=== PATIENT | male | born 1935 | race Hispanic/Latino ===

== ENCOUNTER → 2018-06-30 | Outpatient (CLI) | payer OTHER ==
[~2018-06-30] VITALS: Ht 167.6 cm; Wt 70.3 kg
[~2018-06-30] MED LIST: ASPI-1197 PO; GLIP1TAB6 PO; LISI40TA4 PO; PRAV20TA4 PO; REGADENOSON 0.4 MG/5 ML PF SYG IVP SCH; SITA100T12 PO
== END | disposition home or self-care (01) ==
LOC: SHCH 08:38
PROVIDERS: ATTEND Internal Medicine Cardiovascular Disease
DX: I25.9 Chronic ischemic heart disease, unspecified (principal); I10 Essential (primary) hypertension
CPT/HCPCS: 78452; 93017; 96374; A9500 ×2; J2785

== ENCOUNTER 2020-10-02 14:46 | Observation (INO) | payer OTHER ==
[~2020-10-02] VITALS: Ht 167.6 cm; Wt 66.2 kg
[~2020-10-02 14:46] MED LIST changes: -ASPI-1197 PO; +ASPI-556 PO; +HYDR-3421 PO; -LISI40TA4 PO; +LISI40TA9 PO; +NITR0.4T50 SL; -REGADENOSON 0.4 MG/5 ML PF SYG IVP SCH; +TAMS-1 PO
[2020-10-02 14:49] VITALS: BP 164/97
[2020-10-02 15:38] LABS: BASOPHILS % (AUTO) 0.8 % (0.0-5.0); EOSINOPHILS % (AUTO) 2.8 % (0.0-8.0); HEMATOCRIT 32.3 % (42-54); LYMPHOCYTES % (AUTO) 24.1 % (21.0-51.0); MEAN CORPUSCULAR HEMOGLOBIN 24.3 pg (27.0-33.0); MEAN CORPUSCULAR HGB CONC 31.6 g/dL (32.0-36.0); MEAN CORPUSCULAR VOLUME 76.9 fL (79-99); NEUTROPHILS % (AUTO) 61.7 % (40.0-77.0); PLATELET COUNT (AUTO) 293 K/uL (130-400); RED CELL DISTRIBUTION WIDTH 15.1 % (11.0-15.5); WHITE BLOOD COUNT (AUTO) 5.3 K/uL (4.8-10.8)
[2020-10-02 15:48] LABS: INR 1.06 (0.85-1.15); PROTHROMBIN TIME 11.5 SEC (9.6-11.6)
[2020-10-02 15:49] LABS: PARTIAL THROMBOPLASTIN TIME 25.9 SEC (26.3-35.5)
[2020-10-02 15:50] LABS: CARBON DIOXIDE 26 mmol/L (21-32); CHLORIDE 101 mmol/L (101-111); GLOMERULAR FILTR. RATE CALC 75 mL/min (>60); GLUCOSE,RANDOM 259 mg/dL (70-105); POTASSIUM 4.4 mmol/L (3.5-5.1); SODIUM SERUM 137 mmol/L (136-145); UREA NITROGEN, BLOOD 24 mg/dL (7-18)
[2020-10-02 16:00] VITALS: BP 150/76
[2020-10-02 16:02] LABS: ALANINE AMINOTRANSFERASE 20 U/L (12-78); ALBUMIN 3.6 g/dL (3.5-5.0); ASPARTATE AMINOTRANSFERASE 6 U/L (10-37); BILIRUBIN,TOTAL 0.4 mg/dL (0.2-1.0); CREATINE KINASE, TOTAL 53 U/L (21-232); MYOGLOBIN 36 ng/mL (10-92); TOTAL PROTEIN, SERUM 7.2 g/dL (6.0-8.3); TROPONIN I < 0.04 ng/mL (0.00-0.06)
[2020-10-02 16:05] LABS: B-TYPE NATRIURETIC PEPTIDE 31 pg/mL (0-100)
[2020-10-02] MEDS ORDERED: SITA100T12 PO (16:16)
[2020-10-02] MEDS ORDERED: METO25TA6 PO (16:16)
[2020-10-02] MEDS ORDERED: GLUCAGON 1MG KIT 1 MG ML IM PRN (17:00)
[2020-10-02] MEDS ORDERED: ACETAMINOPHEN 325 MG TAB PO PRN (17:00)
[2020-10-02] MEDS ORDERED: ONDANSETRON 4MG TABLET PO PRN (17:00)
[2020-10-02] MEDS ORDERED: DEXTROSE 50%-WATER 50 ML DISP.SYRIN IV PRN (17:00)
[2020-10-02] MEDS ORDERED: TETANUS/DIPHTHERIA TOXOID [ADULT] 0.5 ML VIAL IM ONE ×2 (17:30→20:00)
[2020-10-02] MEDS: INSULIN R PO SS1 SQ SCH (21:00)
[2020-10-02 22:16] LABS: CREATINE KINASE, TOTAL 58 U/L (21-232); MYOGLOBIN 39 ng/mL (10-92); TROPONIN I < 0.04 ng/mL (0.00-0.06)
[2020-10-02 22:18] VITALS: BP 151/64
[2020-10-03] VITALS (7 sets, daily range): BP systolic 111–153; BP diastolic 53–74
[2020-10-03 04:18] LABS: BASOPHILS % (AUTO) 0.4 % (0.0-5.0); EOSINOPHILS % (AUTO) 2.5 % (0.0-8.0); HEMATOCRIT 30.8 % (42-54); LYMPHOCYTES % (AUTO) 22.3 % (21.0-51.0); MEAN CORPUSCULAR HEMOGLOBIN 24.2 pg (27.0-33.0); MEAN CORPUSCULAR HGB CONC 31.8 g/dL (32.0-36.0); MONOCYTES % (AUTO) 9.2 % (3.0-13.0); NEUTROPHILS % (AUTO) 65.3 % (40.0-77.0); PLATELET COUNT (AUTO) 272 K/uL (130-400); RED BLOOD CELL COUNT(AUTO) 4.05 MIL/uL (4.50-6.20); WHITE BLOOD COUNT (AUTO) 6.8 K/uL (4.8-10.8)
[2020-10-03 04:42] LABS: CARBON DIOXIDE 26 mmol/L (21-32); CHLORIDE 103 mmol/L (101-111); CREATINE KINASE, TOTAL 55 U/L (21-232); CREATININE 1.1 mg/dL (0.5-1.5); GLOMERULAR FILTR. RATE CALC 67 mL/min (>60); GLUCOSE,RANDOM 186 mg/dL (70-105); MYOGLOBIN 48 ng/mL (10-92); SODIUM SERUM 140 mmol/L (136-145); TROPONIN I < 0.04 ng/mL (0.00-0.06); UREA NITROGEN, BLOOD 19 mg/dL (7-18)
[2020-10-03] MEDS: INSULIN R PO SS1 SQ SCH ×3 (06:39→16:30)
[2020-10-03] MEDS ORDERED: MAGNESIUM 2GM PREMIX 50ML 50 ML IV PRN (08:30)
[2020-10-03] MEDS ORDERED: LINAGLIPTIN 5 MG TABLET PO SCH (09:00)
[2020-10-03] MEDS ORDERED: ENOXAPARIN SODIUM 40 MG/0.4 ML SYRINGE SQ SCH (09:00)
[2020-10-03] MEDS: GLIPIZIDE 5 MG TABLET PO SCH ×2 (09:13→17:00)
[2020-10-03] MEDS: METOPROLOL TARTRATE 25 MG TAB PO SCH ×2 (12:33→17:00)
[2020-10-03] MEDS ORDERED: METFORMIN HCL 500 MG TABLET PO SCH (17:00)
[2020-10-03] MEDS ORDERED: ASPIRIN 81 MG EC TAB PO SCH (21:00)
[2020-10-03] MEDS ORDERED: SIMVASTATIN 20 MG TABLET PO SCH (21:00)
[2020-10-03] MEDS ORDERED: TAMSULOSIN HCL 0.4 MG CAP.ER.24H PO SCH (21:00)
== END 2020-10-03 17:45 | disposition home or self-care (01) ==
LOC: EDH 14:46 → EDHIP 16:20 → 3BH 22:23
PROVIDERS: ADMIT Internal Medicine Infectious Disease; ATTEND Internal Medicine Infectious Disease
DX: R55 Syncope and collapse (principal); S06.0X9A Concussion with loss of consciousness of unspecified duration, initial encounter; S01.01XA Laceration without foreign body of scalp, initial encounter; I10 Essential (primary) hypertension; I44.0 Atrioventricular block, first degree; N40.0 Benign prostatic hyperplasia without lower urinary tract symptoms; D64.9 Anemia, unspecified; E78.5 Hyperlipidemia, unspecified; E78.00 Pure hypercholesterolemia, unspecified; I25.10 Atherosclerotic heart disease of native coronary artery without angina pectoris; E11.65 Type 2 diabetes mellitus with hyperglycemia; E66.9 Obesity, unspecified; I48.0 Paroxysmal atrial fibrillation; E03.9 Hypothyroidism, unspecified; Z98.61 Coronary angioplasty status; Z79.82 Long term (current) use of aspirin; Z95.1 Presence of aortocoronary bypass graft; Z68.23 Body mass index [BMI] 23.0-23.9, adult; W19.XXXA Unspecified fall, initial encounter; Y92.89 Other specified places as the place of occurrence of the external cause; Y93.89 Activity, other specified; Y99.8 Other external cause status
CPT/HCPCS: 36415 ×2; 70450; 72125; 80048; 80053; 82550 ×3; 82948 ×4; 83735; 83874 ×3; 83880; 84484 ×3; 85025 ×2; 85610; 85730; 93005 ×3; 93306; 93356; 93880; 96365; 96366; 96372; 99285; G0378 ×24; J1650; J1815 ×2; J3475; Q0162; 90714

== ENCOUNTER → 2022-12-15 | Outpatient (CLI) | payer OTHER ==
[~2022-12-15] MED LIST changes: -HYDR-3421 PO; -LISI40TA9 PO; +METO25TA6 PO; -NITR0.4T50 SL
[2022-12-15 12:21] LABS: BASOPHILS # (AUTO) 0.04 K/uL (0.00-0.20); BASOPHILS % (AUTO) 0.6 % (0.0-5.0); EOSINOPHILS # (AUTO) 0.24 K/uL (0.00-0.70); EOSINOPHILS % (AUTO) 3.4 % (0.0-8.0); IMMATURE GRANULOCYTE ABSOLUTE 0.05 K/uL (0-1); LYMPHOCYTES # (AUTO) 1.9 K/uL (1.0-4.8); LYMPHOCYTES % (AUTO) 27.1 % (21.0-51.0); MEAN CORPUSCULAR HEMOGLOBIN 22.1 pg (27.0-33.0); MEAN CORPUSCULAR HGB CONC 29.7 g/dL (32.0-36.0); MEAN CORPUSCULAR VOLUME 74.4 fL (79-99); MONOCYTES # (AUTO) 0.5 K/uL (0.1-1.0); MONOCYTES % (AUTO) 7.5 % (3.0-13.0); NEUTROPHILS # (AUTO) 4.3 K/uL (1.8-7.7); NEUTROPHILS % (AUTO) 60.7 % (40.0-77.0); PLATELET COUNT (AUTO) 392 K/uL (130-400); RED BLOOD CELL COUNT(AUTO) 4.84 MIL/uL (4.50-6.20); RED CELL DISTRIBUTION WIDTH 18.6 % (11.0-15.5); WHITE BLOOD COUNT (AUTO) 7.1 K/uL (4.8-10.8)
[2022-12-15 12:39] LABS: ALBUMIN 3.9 g/dL (3.5-5.0); BILIRUBIN,TOTAL 0.4 mg/dL (0.2-1.0); MAGNESIUM 1.6 mg/dL (1.80-2.40); POTASSIUM 4.3 mmol/L (3.5-5.1); T4 (THYROXINE) 8.4 ug/dL (4.7-13.3); THYROID STIMULATING HORMONE 6.42 uIU/mL (0.36-3.74); TOTAL PROTEIN, SERUM 7.8 g/dL (6.0-8.3)
== END | disposition home or self-care (01) ==
LOC: LAB 10:25
PROVIDERS: ATTEND Internal Medicine Cardiovascular Disease
DX: I10 Essential (primary) hypertension (principal); E78.5 Hyperlipidemia, unspecified; R00.0 Tachycardia, unspecified; I25.810 Atherosclerosis of coronary artery bypass graft(s) without angina pectoris
CPT/HCPCS: 36415; 80053; 83735; 84436; 84443; 85025

== ENCOUNTER 2023-11-02 12:41 | Emergency (ER) | payer OTHER ==
[~2023-11-02] VITALS: Ht 167.6 cm; Wt 62.1 kg
[~2023-11-02 12:41] MED LIST changes: +EMPA10TA PO; +HYDR-3421 PO; +LEVO25TA54 PO; +LOSA25TA41 PO
[2023-11-02 13:26] LABS: BASOPHILS # (AUTO) 0.04 K/uL (0.00-0.20); BASOPHILS % (AUTO) 0.5 % (0.0-5.0); EOSINOPHILS # (AUTO) 0.09 K/uL (0.00-0.70); EOSINOPHILS % (AUTO) 1.2 % (0.0-8.0); HEMATOCRIT 44.9 % (42-54); IMMATURE GRANULOCYTE ABSOLUTE 0.05 K/uL (0-1); LYMPHOCYTES # (AUTO) 0.9 K/uL (1.0-4.8); LYMPHOCYTES % (AUTO) 12.3 % (21.0-51.0); MEAN CORPUSCULAR HEMOGLOBIN 31.3 pg (27.0-33.0); MEAN CORPUSCULAR HGB CONC 34.7 g/dL (32.0-36.0); MEAN CORPUSCULAR VOLUME 90.2 fL (79-99); MONOCYTES # (AUTO) 0.5 K/uL (0.1-1.0); MONOCYTES % (AUTO) 6.2 % (3.0-13.0); NEUTROPHILS % (AUTO) 79.1 % (40.0-77.0); PLATELET COUNT (AUTO) 298 K/uL (130-400); RED BLOOD CELL COUNT(AUTO) 4.98 MIL/uL (4.50-6.20); RED CELL DISTRIBUTION WIDTH 14.6 % (11.0-15.5); WHITE BLOOD COUNT (AUTO) 7.6 K/uL (4.8-10.8)
[2023-11-02] MEDS: ASPIRIN 325MG TAB PO ONE (13:29)
[2023-11-02] MEDS: NITROGLYCERIN 0.4 MG SL TAB SL PRN (13:29)
[2023-11-02 13:31] LABS: CREATININE 1.2 mg/dL (0.5-1.3); POTASSIUM 4.5 mmol/L (3.5-5.1)
[2023-11-02] MEDS ORDERED: 0.9%NACL 1000ML 1,000 ML IV ONE (14:00)
[2023-11-02 14:02] LABS: INR 1.04 (0.85-1.15); PROTHROMBIN TIME 11.2 SEC (9.6-11.6)
[2023-11-02 14:03] LABS: PARTIAL THROMBOPLASTIN TIME 27.2 SEC (26.3-35.5)
[2023-11-02 14:25] LABS: B-TYPE NATRIURETIC PEPTIDE 136 pg/mL (0-100)
[2023-11-02 15:55] VITALS: BP 103/63; PULSE 100; RESP 16; O2SAT 95
== END 2023-11-02 16:19 | disposition home or self-care (01) ==
LOC: EDH 12:41
DX: R00.0 Tachycardia, unspecified (principal); E11.65 Type 2 diabetes mellitus with hyperglycemia; E03.9 Hypothyroidism, unspecified; E78.00 Pure hypercholesterolemia, unspecified; I10 Essential (primary) hypertension; Z79.82 Long term (current) use of aspirin; Z79.84 Long term (current) use of oral hypoglycemic drugs; Z79.899 Other long term (current) drug therapy; Z95.1 Presence of aortocoronary bypass graft
CPT/HCPCS: 36415; 71045; 80048; 82550; 83880; 84484; 85025; 85610; 85730; 93005

== ENCOUNTER → 2023-11-05 | Outpatient (CLI) | payer OTHER ==
[2023-11-05] MEDS: REGADENOSON 0.4 MG/5 ML PF SYG IVP ONE (10:25)
== END | disposition home or self-care (01) ==
LOC: SHCH 08:19
PROVIDERS: ATTEND Internal Medicine Cardiovascular Disease
DX: I44.7 Left bundle-branch block, unspecified (principal); R07.9 Chest pain, unspecified; R06.00 Dyspnea, unspecified
CPT/HCPCS: 78452; 93017; J2785; A9500 ×2

== ENCOUNTER 2024-04-18 11:47 | Inpatient (IN) | payer OTHER ==
[~2024-04-18] VITALS: Ht 154.9 cm; Wt 59.0 kg
--- NOTE | 2024-04-18 12:10 | EKG ---
[facility] Test Date: 2024-04-18 Test Time: 12:02:28 Pat Name: BENJAMIN RODRIGUEZ Department: ED Room: 209 Gender: M Hand Stoner: [id number] : 1935 Requested By: MORAIMA AGUIRRE Order Number: [id number] Reading MD: Sobeida Kerns Measurements Intervals [place] Rate: 82 P: 44 LA: 212 QRS: -23 QRSD: 143 T: 148 QT: 421 QTc: 492 Interpretive Statements Sinus rhythm with rapid ventricular response Left bundle branch block ST elevation secondary to IVCD Compared to ECG 11/02/2023 12:57:53 Intraventricular conduction delay now present ST (T wave) deviation now present Atrial premature complex(es) no longer present Electronically Signed On 04-19-2024 17:06:32 ALLEY TENDER by Sobeida Kerns Please click the below link to view image of tracing.
--- NOTE | 2024-04-18 12:40 | HMCIMG ---
CHEST 1VW HISTORY: Chest pain COMPARISON: 11/02/2023 FINDINGS: A frontal projection of the chest was obtained. No acute pulmonary infiltrates is seen. Poststernotomy changes are seen. The heart is enlarged. Degenerative changes of the thoracolumbar spine are present. No evidence of aortic calcification is seen. IMPRESSION: 1. No acute pulmonary infiltrate is seen.
[2024-04-18 13:17] LABS: BASOPHILS # (AUTO) 0.03 K/uL (0.00-0.20); BASOPHILS % (AUTO) 0.4 % (0.0-5.0); EOSINOPHILS # (AUTO) 0.11 K/uL (0.00-0.70); EOSINOPHILS % (AUTO) 1.6 % (0.0-8.0); IMMATURE GRANULOCYTE ABSOLUTE 0.04 K/uL (0-1); LYMPHOCYTES # (AUTO) 1.3 K/uL (1.0-4.8); LYMPHOCYTES % (AUTO) 18.8 % (21.0-51.0); MEAN CORPUSCULAR HEMOGLOBIN 32.7 pg (27.0-33.0); MEAN CORPUSCULAR HGB CONC 35.1 g/dL (32.0-36.0); MEAN CORPUSCULAR VOLUME 93.1 fL (79-99); MONOCYTES # (AUTO) 0.5 K/uL (0.1-1.0); MONOCYTES % (AUTO) 7.3 % (3.0-13.0); NEUTROPHILS # (AUTO) 4.9 K/uL (1.8-7.7); NEUTROPHILS % (AUTO) 71.3 % (40.0-77.0); PLATELET COUNT (AUTO) 290 K/uL (130-400); RED BLOOD CELL COUNT(AUTO) 4.62 MIL/uL (4.50-6.20); RED CELL DISTRIBUTION WIDTH 13.2 % (11.0-15.5); WHITE BLOOD COUNT (AUTO) 6.9 K/uL (4.8-10.8)
[2024-04-18 13:27] LABS: CREATININE 1.2 mg/dL (0.5-1.3); POTASSIUM 4.6 mmol/L (3.5-5.1)
--- NOTE | 2024-04-18 13:40 | NUR ---
Doctor Ricardo silva aware of troponin 303
[2024-04-18 13:50] LABS: B-TYPE NATRIURETIC PEPTIDE 101 pg/mL (0-100)
[2024-04-18] MEDS: ASPIRIN 325MG EC TAB PO ONE (14:00)
--- NOTE | 2024-04-18 14:00 | NUR ---
placed patient on monitor
--- NOTE | 2024-04-18 14:13 | ERN ---
General Chief Complaint: Chest Pain Stated Complaint: CHEST PAIN Time Seen by MD: 11:55 Source: patient History of Present Illness Initial Comments Patient is an 88-year-old male with a past medical history significant for hypertension, diabetes, hyperlipidemia, CABG x3 who presented to the emergency room today with a complaint of chest pain. Patient states that the pain has b een ongoing for several months, however he did not bother with it because taking nitroglycerin seemed to relieve the pain however this morning he had the pain which was nonresponsive to nitroglycerin so he decided to come into the emergency room for evaluation and treatment. Patient describes the pain as sharp sternal in location, rated as an 8/10, intermittent in frequency, nonr adiating. There is associated shortness of breath and palpitations denies any nausea or any vomiting. Allergies: Coded Allergies: No Known Allergies (Verified Allergy, Unknown, 04/13/14) Home Meds Reported Medications Tolterodine Tartrate (Tolterodine Tartrate ER) 2 Mg Cap.er.24h, 1 CAP PO DAILY for 30 Days, #30 CAP 0 Refills 04/18/24 Isosorbide Mononitrate (Isosorbide Mononitrate ER) 30 Mg Tab.er.24h, 1 TAB PO DAILY for 30 Days, #30 TAB 0 Refills 04/18/24 Finasteride (Finasteride) 5 Mg Tablet, 1 TAB PO DAILY for 30 Days, #30 TAB 0 Refills 04/18/24 Levothyroxine Sodium (Levothyroxine Sodium) 25 Mcg Tablet, 1 TAB PO DAILY 01/25/23 Empagliflozin (Jardiance) 10 Mg Tablet, 10 MG PO DAILY, TAB 01/25/23 Hydroxyzine HCl (Hydroxyzine HCl) 25 Mg Tablet, 25 MG PO HSPRN PRN for INSOMNIA, TAB 01/25/23 Losartan Potassium (Losartan Potassium) 25 Mg Tablet, 25 MG PO DAILY, TAB 01/25/23 Sitagliptin Phosphate (Januvia) 100 Mg Tablet, 100 MG PO DAILY, TAB 10/02/20 Metoprolol Tartrate (Metoprolol Tartrate) 25 Mg Tablet, 25 MG PO BIDLUNCHDINNER, TAB 10/02/20 Pravastatin Sodium (Pravastatin Sodium) 20 Mg Tablet, 20 MG PO HS, TAB 07/18/18 Aspirin (Aspir 81) 81 Mg Tablet.dr, 81 MG PO HS, TAB 07/18/18 Tamsulosin HCl (Flomax) 0.4 Mg Cap.er.24h, 0.4 MG PO PCDINNER, CAPSULE. 07/18/18 Glipizide/Metformin HCl (Glipizide-Metformin 5-500 mg) 1 Each Tablet, 2 EACH PO BID, TAB 04/13/14 Past Medical History Past Medical History: Diabetes-Type II, High Cholesterol, Hypertension Past Surgical History: CABG Surgical History Other: Bilateral Cataract Surgery Family History Family History: Negative Social History Social History: Negative ROS Dictation Constitutional: No appetite loss, No fevers, chills , No night sweats, No weakness, fatigue Eye: No vision change, No redness, pain or discharge ENT: No hearing loss, ear pain or discharge, No nose bleeds, No sore throat, Neck: No swelling. pain or stiffness Respiratory: No cough, shortness of breath, wheezing Cardiovascular: chest pain,, palpitations, dyspnea, No edema Gastrointestinal: No abdominal pain, No nausea, vomiting, No diarrhea, constipation Genitourinary: No painful urination, No blood in urine, No urinary incontinence, No frequency or urgency Musculoskeletal: No joint pain, muscle pain, swelling or stiffness Neurological: No numbness, tingling, No weakness, tremors or seizures Psychiatric: : No depression, No anxiety, No sleep disturbance, No Memory changes Lymphatic: No easy bruising, No bleeding tendencies , No swollen lymph nodes A 13-point Review of Systems was assessed, all of which are negative except for HPI or as indicated above. Physical Exam Physical Exam Dictation General: Alert & Oriented, No acute distress. EENT: No conjunctival redness or discharge noted Tympanic membranes are clear, Normal hearing, Oral mucosa is moist, No pharyngeal erythema, No nasal discharge, No oral lesions. Neck: Non-tender, No jugular vein distention, No lymphadenopathy, No thyromegaly, Supple. Respiratory: Lungs are clear to auscultation, Respirations are non-labored, Breath sounds are equal, No chest wall tenderness, _. Cardiovascular: Normal rate, Normal rhythm, No murmur, Good pulses equal in all extremities, Normal peripheral perfusion, No edema. Gastrointestinal: Soft, Non-tender, Non-distended, Normal bowel sounds, No organomegaly, _. Musculoskeletal: Normal range of motion, Normal strength, No tenderness, No swelling, No deformity, Normal gait. Integumentary: Warm, Dry, [place], Intact, No pallor, No rash. Neurologic: Alert, Oriented x4, Normal sensory, No focal defects Psychiatric: Cooperative, Appropriate mood & affect, Normal judgement, Non- suicidal. Results Laboratory and Microbiology Lab and Micro Result Laboratory Tests Test 04/18/24 12:55 04/18/24 13:18 04/18/24 13:51 White Blood Count 6.9 K/uL (4.8-10.8) Red Blood Count 4.62 MIL/uL (4.50-6.20) Hemoglobin 15.1 g/dL (14.0-18.0) Hematocrit 43.0 % (42-54) Mean Corpuscular Volume 93.1 fL (79-99) Mean Corpuscular Hemoglobin 32.7 pg (27.0-33.0) Mean Corpuscular Hemoglobin Concent 35.1 g/dL (32.0-36.0) Red Cell Distribution Width 13.2 % (11.0-15.5) Platelet Count 290 K/uL (130-400) Mean Platelet Volume 10.1 fL (7.5-10.5) Immature Granulocyte % (Auto) 0.6 % (0-1) Neutrophils (%) (Auto) 71.3 % (40.0-77.0) Lymphocytes (%) (Auto) 18.8 % (21.0-51.0) L Monocytes (%) (Auto) 7.3 % (3.0-13.0) Eosinophils (%) (Auto) 1.6 % (0.0-8.0) Basophils (%) (Auto) 0.4 % (0.0-5.0) Neutrophils # (Auto) 4.9 K/uL (1.8-7.7) Lymphocytes # (Auto) 1.3 K/uL (1.0-4.8) Monocytes # (Auto) 0.5 K/uL (0.1-1.0) Eosinophils # (Auto) 0.11 K/uL (0.00-0.70) Basophils # (Auto) 0.03 K/uL (0.00-0.20) Absolute Immature Granulocyte (auto 0.04 K/uL (0-1) Nucleated Red Blood Cells 0.0 % (0.0-0.19) Sodium Level 137 mmol/L (136-145) Potassium Level 4.6 mmol/L (3.5-5.1) Chloride Level 102 mmol/L (101-111) Carbon Dioxide Level 23 mmol/L (21-32) Blood Urea Nitrogen 35 mg/dL (7-18) H Creatinine 1.2 mg/dL (0.5-1.3) Glomerular Filtration Rate Calc 58 mL/min (>90) Random Glucose 300 mg/dL (70-105) H Total Calcium 9.6 mg/dL (8.5-10.1) Total Creatine Kinase 59 U/L (21-232) Troponin I High Sensitivity 303 ng/L (4-75) *H 646 ng/L (4-75) *H B-Type Natriuretic Peptide 101 pg/mL (0-100) H Troponin I 0.08 ng/mL (0.00-0.05) H MDM Potential differential diagnoses include: *NSTEMI Assessment: I will order a CBC and CMP, EKG to evaluate the electrical activity of the heart, troponinx 2, chest x-ray and BNP I will re-evaluate the patient after treatment and diagnostic exams have ret urned to determine whether they require further testing, can be safely discharged home, or need admission for further treatment and evaluation. Given the social determinants of health affecting care, including literacy, access to medical care, prescription drug management, and [id number] drugs, I will ensure that treatment plans are tailored accordingly. Revaluation : Patient is alert and oriented. States he feels a lot better. has no chest pain at this time . Patient's troponin is elevated at 303, will order a repeat Troponin Repeat Troponin was 648 , will try to admit the patient for NSTEMI Disposition: Spoke to Dr Beltrán about the case, will admit the patient for further evaluation and treatment. Attestation: Patient's case was discussed with the ER MD. Reviewed the documentation, medical decision making and treatment plan. Agrees with the findings and plan of care. HEART score: 6 ED Course Orders Procedure Category Date Status Time Vital Signs Per CPOE 04/18/24 Transmitted Routine 11:53 B-Type Natriuretic LAB 04/18/24 Complete Peptide 11:53 Chest 1vw RAD 04/18/24 Resulted 11:53 12 Lead Ekg Tracing- EKG 04/18/24 Complete Technical 11:53 Oxygen By Nc/Pulse Ox CPOE 04/18/24 Transmitted 11:53 Maintain Iv CPOE 04/18/24 Transmitted 11:53 Iv Insertion CPOE 04/18/24 Transmitted 11:53 Cardiac Monitoring CPOE 04/18/24 Transmitted 11:53 Pulse Oximetry With CPOE 04/18/24 Transmitted Vs And Prn 11:53 Cbc With Differential LAB 04/18/24 Complete 11:53 Activity: Br W/Brp CPOE 04/18/24 Transmitted With Assist 11:53 Creatine Kinase, Total LAB 04/18/24 Complete 11:53 Troponin I High LAB 04/18/24 Complete Sensitivity 11:53 Urinalysis Profile LAB 04/18/24 Complete 11:53 Troponin Poc Order LAB 04/18/24 Complete Only 11:53 Bedside Troponin-I LAB.ER 04/18/24 In Process (Poc) 11:53 Basic Metabolic Panel LAB 04/18/24 Complete 11:53 Aspirin 325mg Ec Tab PHA 04/18/24 Complete (Aspirin 325mg Ec T 14:00 Troponin I High LAB 04/18/24 Complete Sensitivity 13:46 Current Medications Medications (Trade) Dose Ordered Sig/Jj Route PRN Reason Start Time Stop Time Status Last Admin Dose Admin Aspirin (Aspirin 325mg Ec Tab) 325 mg ONCE ONCE PO 04/18/24 14:00 04/18/24 14:01 DC 04/18/24 14:00 Vital Signs Date Time Temp Pulse Resp B/P (MAP) Pulse Ox O2 Delivery O2 Flow Rate FiO2 04/18/24 13:37 98.1 66 17 103/66 96 Room Air* 0 21 04/18/24 11:57 97.5 70 20 121/71 98 Room Air 0 DX & DISP Disposition: Inpatient Departure Impression: Primary Impression: NSTEMI (non-ST elevated myocardial infarction) Critical Time: 30 minutes (Critical Care Procedure NoteAuthorized and Performed by: meTotal critical care time: Approximately 36 minutesDue to a high probability of clinically significant, life threatening deterioration, the patient required my highest level of preparedness to intervene emergently and I personally spent this critical care time directly and personally managing the patient. This critical care time included obtaining a history; examining the patient; pulse oximetry; ordering and review of studies; arranging urgent treatment with development of a management plan; evaluation of patient's response to treatment; frequent reassessment; and, discussions with other providers.This critical care time was performed to assess and manage the high probability of imminent, life-threatening deterioration that could result in multi-organ failure. It was exclusive of separately billable procedures and treating other patients and teaching time.Please see MDM section and the rest of the note for further information on patient assessment and treatment.) Condition: Stable Referrals: NBA BAER MD (PCP) I performed a substantive portion of the visit. I have reviewed and personally made and approve the management plan that is documented in the notes by myself with JENNIFER/resident. I acknowledged full responsibility for the patient's management plan. 88-year-old male with chest pain. EKG stable, no STEMI, elevated troponin consistent with an NSTEMI. Given aspirin. Admitted to hospitalist to telemetry. LIVAN DUQUE MD Apr 18, 2024 14:13 MORAIMA AGUIRRE DO Apr 19, 2024 07:38
--- NOTE | 2024-04-18 14:26 | NUR ---
TROPONIN 646 NOTIFIED DOCTOR LIVAN DUQUE
[2024-04-18] MEDS ORDERED: acetaMINOPHEN 325 MG TAB PO PRN (15:30)
[2024-04-18] MEDS ORDERED: ISOS30TA92 PO (15:40)
[2024-04-18] MEDS ORDERED: FINA5TAB41 PO (15:40)
[2024-04-18] MEDS ORDERED: TOLT2CAP21 PO (15:40)
--- NOTE | 2024-04-18 16:23 | NUR ---
VENKAT SANDERS FOR DR. ALEGRE INFORMED OF CONSULT
[2024-04-18 18:44] LABS: APPEARANCE,URINE CLEAR (CLEAR); BILIRUBIN,URINE NEGATIVE (NEGATIVE); COLOR,URINE LIGHT-YELLOW (YELLOW); GLUCOSE, URINE (UA) >=1000 mg/dL (NEGATIVE); KETONES,URINE NEGATIVE (NEGATIVE); LEUKOCYTE ESTERASE ,URINE 75 Leu/uL (NEGATIVE); NITRATE,URINE NEGATIVE (NEGATIVE); OCCULT BLOOD,URINE NEGATIVE (NEGATIVE); PROTEIN,URINE NEGATIVE (NEGATIVE); UROBILINOGEN,URINE 0.2 mg/dL (0.2-1.0)
[2024-04-18 18:46] LABS: ADD UA MICROSCOPIC YES
[2024-04-18 18:50] LABS: MUCUS,URINE RARE LPF (None Seen); RBC,URINE 0-1 /HPF (0-1); SQUAMOUS EPITHELIAL CELL,UR RARE /HPF (0-2); WBC,URINE 0-1 /HPF (0-1)
--- NOTE | 2024-04-18 19:48 | NUR ---
MARILYN RASMUSSEN NIGHT TIME NANNY AT BEDSIDE AT THIS TIME
--- NOTE | 2024-04-18 20:43 | CONS ---
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 Cardiology has been consulted for chest pain. The patient states he has been having intermittent chest pain for more than five months. He had an episode of midsternal chest discomfort at 5:00 a.m. this morning that subsided within 5 minutes after taking a sublingual nitroglycerin tablet. While at [facility], as he was pushing a shopping cart and began to experience midsternal chest discomfort but was unable to describe the quality but it lasted for one hour. He did not have Nitroglycerine tablets on him, but he only has 2-3 tablets left. Troponin of 303 and 646. EKG demonstrated normal sinus rhythm with a heart rate of 82bpm with a LBBB. Accompanying symptoms include palpitations and dizziness. Aggravating factors include exertion and relieving factors include nitroglycerin tablets and deep breathing. He currently denies chest pain, chest pressure, palpitations, dizziness, shortness of breath, nausea, or vomiting. Past Medical History: As per HPI and summarized below Past Surgical History: CAD s/p CABG x3 (MIRELES-LAD, SVG-PDA, and SVG-OM) on 07/21/2018 Family History: Noncontributory. Social History: The patient lives with and daughter. Habits: The patient denies alcohol, tobacco, or illicit drug use. Home Meds: Isosorbide mononitrate 30 mg daily Jardiance 10 mg daily Vowpfzde35 mg daily Qrhvyfxzg99 mg b.i.d. Tmylxvn76 mg nightly Pravastatin 20 mg nightly Glipizide-metformin 5-500 mg b.i.d. clinical Tolterodine tartrate 2mg daily Finasteride 5mg daily Current Meds: Current Medications Medications Dose Ordered Sig/Jj Start Time Stop Time Status Last Admin Aspirin 81 mg DAILY 04/19/24 09:00 05/19/24 08:59 Acetaminophen 650 mg Q6H PRN 04/18/24 15:30 05/18/24 15:29 Ondansetron HCl 4 mg Q6H PRN 04/18/24 15:30 05/18/24 15:29 Enoxaparin Sodium 40 mg DAILY 04/19/24 09:00 05/19/24 08:59 Review of Systems: CONST: No fever, fatigue, or weight changes. EYES: No recent vision problems. ENT: No congestion, ear pain, or sore throat. C/V: No chest pain, palpitations, or edema. RESP: No cough, congestion, wheezing or shortness of breath. GI: No abdominal pain, nausea, vomiting, constipation, or diarrhea. : No incontinence or dysuria. SKIN: No rash. NEURO: No headache, focal numbness or weakness, dizziness, or seizures. PSYCH: No depression or anxiety. HEME: No abnormal bruising or bleeding. LYMPH: No swollen glands. Physical Examination: GENERAL: No acute distress. HEAD: Normal with no signs of head trauma. EYES: PERRLA, EOMI, conjunctiva and sclera normal. ENT: Hearing grossly intact, normal oropharynx. NECK: Supple without JVD. There is no tenderness, lymphadenopathy, or masses. No thyromegaly. Normal carotid upstrokes without bruits. LUNGS: Minimal rales to right base. Left base diminished. HEART: Normal rate and rhythm. Normal S1 and S2 without murmurs, gallop or rub. VASC: Peripheral pulses +2 bilaterally. ABD: Bowel sounds normal, soft, nontender, no masses, no organomegaly. No audible bruits. : Not examined LYMPH: No lymphadenopathy noted. EXT: No clubbing, cyanosis or edema. SKIN: No rashes or lesions noted. NEURO: Awake, alert, and oriented x3. No focal sensory or strength deficits noted. Vital Signs (last 8hr) Date Time Temp Pulse Resp B/P (MAP) Pulse Ox O2 Delivery O2 Flow Rate FiO2 04/18/24 19:33 98.1 72 20 119/60 97 Room Air* 0 21 04/18/24 16:00 98.1 76 18 113/57 98 Room Air* 0 21 04/18/24 15:32 98.1 66 17 134/59 98 Room Air* 0 21 04/18/24 13:37 98.1 66 17 103/66 96 Room Air* 0 21 Laboratory: Hematology Labs: Test 04/18/24 12:55 Range/Units White Blood Count 6.9 4.8-10.8 K/uL Red Blood Count 4.62 4.50-6.20 MIL/uL Hemoglobin 15.1 14.0-18.0 g/dL Hematocrit 43.0 42-54 % Mean Corpuscular Volume 93.1 79-99 fL Mean Corpuscular Hemoglobin 32.7 27.0-33.0 pg Mean Corpuscular Hemoglobin Concent 35.1 32.0-36.0 g/dL Red Cell Distribution Width 13.2 11.0-15.5 % Platelet Count 290 130-400 K/uL Mean Platelet Volume 10.1 7.5-10.5 fL Immature Granulocyte % (Auto) 0.6 0-1 % Neutrophils (%) (Auto) 71.3 40.0-77.0 % Lymphocytes (%) (Auto) 18.8 L 21.0-51.0 % Monocytes (%) (Auto) 7.3 3.0-13.0 % Eosinophils (%) (Auto) 1.6 0.0-8.0 % Basophils (%) (Auto) 0.4 0.0-5.0 % Neutrophils # (Auto) 4.9 1.8-7.7 K/uL Lymphocytes # (Auto) 1.3 1.0-4.8 K/uL Monocytes # (Auto) 0.5 0.1-1.0 K/uL Eosinophils # (Auto) 0.11 0.00-0.70 K/uL Basophils # (Auto) 0.03 0.00-0.20 K/uL Absolute Immature Granulocyte (auto 0.04 0-1 K/uL Nucleated Red Blood Cells 0.0 0.0-0.19 % Chemistry Labs: Test 04/18/24 13:51 04/18/24 13:18 04/18/24 12:55 Range/Units Troponin I High Sensitivity 646 *H 4-75 ng/L Troponin I 0.08 H 0.00-0.05 ng/mL Sodium Level 137 136-145 mmol/L Potassium Level 4.6 3.5-5.1 mmol/L Chloride Level 102 101-111 mmol/L Carbon Dioxide Level 23 21-32 mmol/L Blood Urea Nitrogen 35 H 7-18 mg/dL Creatinine 1.2 0.5-1.3 mg/dL Glomerular Filtration Rate Calc 58 >90 mL/min Random Glucose 300 H 70-105 mg/dL Total Calcium 9.6 8.5-10.1 mg/dL Total Creatine Kinase 59 21-232 U/L B-Type Natriuretic Peptide 101 H 0-100 pg/mL Diagnostics / Radiology: Impression and Plan: Angina Elevated Troponin HTN HLD Paroxysmal atrial fibrillation not on anticoagulation Chronic left bundle-branch block CAD s/p CABG x3 (MIRELES-LAD, SVG-PDA, and SVG-OM) on 07/21/2018 2D echo on 10/03/2020 with an EF of 50-55%, grade 1 diastolic dysfunction, no obvious regional wall motion abnormalities Lexiscan stress test on 11/05/2023 demonstrated a large size moderate severity partially reversible defect of the basal to distal anterior and anteroseptal segments, hypokinesis of the anterior, septal, inferoseptal, and inferior segments with LVEF of 31% Angina Troponin of 303 and 646 EKG demonstrated normal sinus rhythm with a heart rate of 82bpm with a LBBB Abnormal Lexiscan stress test on 11/05/2023, but due to the patient's age and overall status, conservative management was recommended. -Troponin due at 2200 and in AM -Start Aspirin 81mg daily, Metoprolol tartrate 25mg BID, Imdur 30mg daily, Ranexa 500mg BID and Lovenox 1mg/kg BID. -Observe for hypotension -The patient will need a refill of Nitroglycerin tablets on discharge ATTESTATION BY PHYSICIAN I have reviewed the above documentation, participated in medical decision making, made necessary modifications, and agree with the treatment plan as documented by my mid-level provider above. Given very advanced age we will still attempt to treat medically if possible. Patient does appear to have suffered a mild non-STEMI. MD GRADY Garcia VALERIE [facility] Apr 18, 2024 20:43 MICHAEL ALEGRE MD Apr 18, 2024 22:17
[2024-04-18] MEDS: RANOLAZINE 500 MG TAB.SR.12H PO SCH (21:43)
[2024-04-18] MEDS: metoPROLOL tartRATE 25 MG TAB PO SCH (21:43)
[2024-04-18] MEDS: ENOXAPARIN SODIUM 60 MG/0.6 ML SQ ONE (21:44)
--- NOTE | 2024-04-18 23:28 | NUR ---
REPORT GIVEN TO LAYLA MORENO
[2024-04-18 23:45] VITALS: BP 109/65; PULSE 64; RESP 24; TEMP 97.7
[2024-04-18 23:49] VITALS: O2SAT 96
[2024-04-19] VITALS (8 sets, daily range): BP systolic 104–128; BP diastolic 43–85; PULSE 60–82; RESP 14–27; TEMP 97–97.6; O2SAT 96
--- NOTE | 2024-04-19 02:07 | HP ---
DATE OF SERVICE: 04/18/2024 PRESENTING COMPLAINT: Chest pain. HISTORY OF PRESENT ILLNESS: An 88-year-old male with history of diabetes mellitus, hypertension, presented to the hospital with chest pain. The patient's symptoms started more than a week ago. It is intermittent, localized to the sternal area. No radiation. No nausea or vomiting. No shortness of breath, no palpitation or orthopnea. Pain is relieved by sublingual nitroglycerin. The patient in the ER shows elevated initial troponin of 303, which increased to 646. EKG shows sinus rhythm with intraventricular conduction delay. PAST MEDICAL HISTORY: * Diabetes mellitus. * Hypertension. * Coronary artery disease. * Dyslipidemia. * Hypothyroidism. * BPH. PAST SURGICAL HISTORY: * Cardiac catheterization. * CABG. ALLERGIES: No known drug allergy. HOME MEDICATIONS: Reviewed. SOCIAL HISTORY: Lives with daughter. No alcohol, tobacco or illicit drug use. FAMILY HISTORY: Positive for diabetes mellitus. REVIEW OF SYSTEMS: CONSTITUTIONAL: No fever or chills. No weight loss or night sweats. EYES: No eye pain, no photophobia or diplopia. HENT: No sore throat, no rhinorrhea or earache. NECK: No neck pain or neck swelling. RESPIRATORY: No cough, no hemoptysis or pleuritic pain. CARDIOVASCULAR: Positive for chest pain, no palpitation, no orthopnea. GASTROINTESTINAL: Denied nausea, vomiting, or abdominal pain. GENITOURINARY: No dysuria, urgency or urinary frequency. CENTRAL NERVOUS SYSTEM: No headache, dyspnea, or slurred speech. PSYCHIATRY: No depression. No suicidal ideation. PHYSICAL EXAMINATION: GENERAL: Elderly male, awake. VITAL SIGNS: Temperature 98.1, pulse 66, respirations 17, BP 134/59. EYES: No icterus. Pupils equal and reactive. HENT: No oral thrush seen. Moist oral mucosa. NECK: Supple, no JVD or thyromegaly. LUNGS: Good air entry. No rales, no rhonchi. CARDIOVASCULAR: S1, S2 regular. No murmur heard. ABDOMEN: Full, soft, nontender. Bowel sound is present. CENTRAL NERVOUS SYSTEM: Awake, alert, oriented x 3. No focal deficits. SKIN: No rashes, no itchiness. LYMPHATIC: No peripheral lymphadenopathy. BACK: No deformity, no pressure ulcer. MUSCULOSKELETAL: No joint swelling, erythema or tenderness. LABORATORY DATA: Glucose 300. Troponin 646. Sodium 137, potassium 4.6, BUN 35, creatinine 1.2. WBC 6.9, hemoglobin 15.1, platelets 290. RADIOLOGY: Chest x-ray showed no infiltrate. ASSESSMENT: An 88-year-old male presenting with chest pain. Current problems include; * Non-ST elevation myocardial infarction. * Hyperglycemia. * Hypertension. * BPH. * Dyslipidemia. * Hypothyroidism. PLAN: * Admit the patient to telemetry. * Start the patient on Lovenox. * Start the patient on aspirin. * Troponin will be trended. * Cardiology evaluation. * Tylenol as needed for pain or fever. * Zofran as needed for nausea and vomiting. * Home medication will be reconciled. * The patient will follow up closely. TID: [id number] RECEIPT: [id number]
[2024-04-19 04:57] LABS: BASOPHILS # (AUTO) 0.02 K/uL (0.00-0.20); BASOPHILS % (AUTO) 0.4 % (0.0-5.0); EOSINOPHILS # (AUTO) 0.16 K/uL (0.00-0.70); HEMATOCRIT 40.8 % (42-54); IMMATURE GRANULOCYTE ABSOLUTE 0.05 K/uL (0-1); LYMPHOCYTES # (AUTO) 1.9 K/uL (1.0-4.8); LYMPHOCYTES % (AUTO) 34.5 % (21.0-51.0); MEAN CORPUSCULAR HEMOGLOBIN 32.6 pg (27.0-33.0); MEAN CORPUSCULAR HGB CONC 34.8 g/dL (32.0-36.0); MEAN CORPUSCULAR VOLUME 93.8 fL (79-99); MONOCYTES # (AUTO) 0.5 K/uL (0.1-1.0); MONOCYTES % (AUTO) 9.3 % (3.0-13.0); NEUTROPHILS # (AUTO) 2.8 K/uL (1.8-7.7); NEUTROPHILS % (AUTO) 51.9 % (40.0-77.0); PLATELET COUNT (AUTO) 214 K/uL (130-400); RED BLOOD CELL COUNT(AUTO) 4.35 MIL/uL (4.50-6.20); RED CELL DISTRIBUTION WIDTH 12.9 % (11.0-15.5); WHITE BLOOD COUNT (AUTO) 5.4 K/uL (4.8-10.8)
[2024-04-19 05:15] LABS: CREATININE 0.8 mg/dL (0.5-1.3); MAGNESIUM 1.5 mg/dL (1.80-2.40)
[2024-04-19] MEDS ORDERED: ENOXAPARIN SODIUM 40 MG/0.4 ML SYRINGE SQ SCH (09:00)
[2024-04-19] MEDS: LoSARTan 25 MG TABLET PO SCH (09:06)
[2024-04-19] MEDS: ASPIRIN 81MG CHEW TAB PO SCH (09:07)
[2024-04-19] MEDS: ISOSORBIDE MONO 30MG SR TAB PO SCH (09:13)
--- NOTE | 2024-04-19 15:44 | PN ---
Angina/non-STEMI Elevated Troponin 2500 peak HTN HLD Paroxysmal atrial fibrillation not on anticoagulation Chronic left bundle-branch block CAD s/p CABG x3 (MIRELES-LAD, SVG-PDA, and SVG-OM) on 07/21/2018 2D echo on 10/03/2020 with an EF of 50-55%, grade 1 diastolic dysfunction, no obvious regional wall motion abnormalities Lexiscan stress test on 11/05/2023 demonstrated a large size moderate severity partially reversible defect of the basal to distal anterior and anteroseptal segments, hypokinesis of the anterior, septal, inferoseptal, and inferior segments with LVEF of 31% Since admission and initiation of current antianginal therapy the patient is asymptomatic. He has been transferred to telemetry status. Peak troponin was 2500 and initial BNP was 101, but chest x-ray is clear. Physical exam is unremarkable. Elderly gentleman oriented in all spheres with no JVD, no rales, nonlabored respiration, normal S1 and S2, no murmur, regular rhythm, no edema. Impression: 88-year-old gentleman status post coronary bypass with previous hospitalization for angina and current hospitalization for non-STEMI, preferring conservative treatment Plan: Telemetry status, continue medical therapy, adjust heart failure regimen as necessary, plan discharge soon Vitals/Labs Vital Signs Date Time Temp Pulse Resp B/P (MAP) Pulse Ox O2 Delivery O2 Flow Rate FiO2 04/19/24 12:00 97.5 78 15 116/72 95 Room Air 04/19/24 08:00 0 21 Laboratory Tests 04/19/24 04:26 Medications Current Medications Aspirin 325 mg ONCE ONCE PO Last administered on 04/18/24at 14:00; Start 04/18/24 at 14:00; Stop 04/18/24 at 14:01; Status DC Aspirin 81 mg DAILY PO Last administered on 04/19/24at 09:07; Start 04/19/24 at 09:00; Stop 05/19/24 at 08:59 Acetaminophen 650 mg Q6H PRN PO; Start 04/18/24 at 15:30; Stop 05/18/24 at 15:29 Ondansetron HCl 4 mg Q6H PRN PO; Start 04/18/24 at 15:30; Stop 05/18/24 at 15:29 Enoxaparin Sodium 40 mg DAILY SQ; Start 04/19/24 at 09:00; Stop 04/18/24 at 20:39; Status DC Metoprolol Tartrate 25 mg BID PO Last administered on 04/19/24at 09:07; Start 04/18/24 at 21:00; Stop 05/18/24 at 20:59 Isosorbide Mononitrate 30 mg DAILY PO Last administered on 04/19/24at 09:13; Start 04/19/24 at 09:00; Stop 05/19/24 at 08:59 Losartan Potassium 25 mg DAILY PO Last administered on 04/19/24at 09:06; Start 04/19/24 at 09:00; Stop 05/19/24 at 08:59 Ranolazine 500 mg BID PO Last administered on 04/19/24at 09:08; Start 04/18/24 at 21:00; Stop 05/18/24 at 20:59 Enoxaparin Sodium 60 mg ONCE ONCE SQ Last administered on 04/18/24at 21:44; Start 04/18/24 at 21:00; Stop 04/18/24 at 21:01; Status DC MICHAEL ALEGRE MD Apr 19, 2024 15:44
--- NOTE | 2024-04-19 17:44 | NUR ---
D/C PLAN CM spoke to patient and spouse regarding d/c planning. Patient is independent with ADL's. Spouse states she assists in care as needed. Reports she drives patient to MD appointments. Patient has a walker at home. No needs verbalized. Plan is to return home to same setting. CM to f/u. Addendum: 04/19/24 at 1745 by JAVIER HUSSEIN CM Amended: Links added.
--- NOTE | 2024-04-19 21:45 | NUR ---
transfer Report given to JOSH Staley. Pt transferred to room 220 at this time. Pt spouse at bedside all belongings taken. Call light within reach and bed alarm activated.
--- NOTE | 2024-04-20 00:40 | PN ---
MEDICAL MANAGEMENT FOLLOWUP NOTE DATE OF SERVICE: 04/19/2024 SUBJECTIVE: The patient is seen and examined at bedside today. No fever. No chills. No chest pain. No palpitation or orthopnea. Denied depression or suicidal ideation. No dysuria or hematuria. The patient has been evaluated by Cardiology and ____ at this time. Troponin trended down, it is 2121 today. PHYSICAL EXAMINATION: VITAL SIGNS: Temperature today ____. EYES: No icterus. Pupils equal and reactive. HENT: No oral thrush seen. Moist oral mucosa. NECK: Supple, no JVD or thyromegaly. LUNGS: Good air entry. No rales, no rhonchi. CARDIOVASCULAR: S1, S2 regular. No murmur heard. ABDOMEN: Full, soft, nontender. Bowel sounds present. CENTRAL NERVOUS SYSTEM: Awake, alert, oriented x 3. No focal deficits. SKIN: No rashes, no itchiness. LYMPHATIC: No peripheral lymphadenopathy. BACK: No deformity, no pressure ulcer. ASSESSMENT: An 88-year-old male presenting with chest pain. Current problems include: * [id number] myocardial infarction. * Hypertension. * Benign prostatic hypertrophy. * Hypothyroidism. * Dyslipidemia. * Debility. PLAN: * Continue antiplatelet. * Continue antihypertensive. * Continue nutritional support. * Monitor electrolytes. * Continue Synthroid. * Continue DVT prophylaxis. TID: [id number] RECEIPT: [id number]
[2024-04-20 03:34] VITALS: BP 101/55; PULSE 72; RESP 16; TEMP 97.6
[2024-04-20 03:46] LABS: BASOPHILS # (AUTO) 0.03 K/uL (0.00-0.20); BASOPHILS % (AUTO) 0.5 % (0.0-5.0); EOSINOPHILS # (AUTO) 0.13 K/uL (0.00-0.70); EOSINOPHILS % (AUTO) 2.3 % (0.0-8.0); HEMATOCRIT 39.7 % (42-54); IMMATURE GRANULOCYTE ABSOLUTE 0.04 K/uL (0-1); LYMPHOCYTES # (AUTO) 1.4 K/uL (1.0-4.8); LYMPHOCYTES % (AUTO) 25.8 % (21.0-51.0); MEAN CORPUSCULAR HEMOGLOBIN 32.3 pg (27.0-33.0); MEAN CORPUSCULAR HGB CONC 34.5 g/dL (32.0-36.0); MEAN CORPUSCULAR VOLUME 93.6 fL (79-99); MONOCYTES # (AUTO) 0.4 K/uL (0.1-1.0); MONOCYTES % (AUTO) 7.5 % (3.0-13.0); NEUTROPHILS # (AUTO) 3.5 K/uL (1.8-7.7); NEUTROPHILS % (AUTO) 63.2 % (40.0-77.0); PLATELET COUNT (AUTO) 219 K/uL (130-400); RED BLOOD CELL COUNT(AUTO) 4.24 MIL/uL (4.50-6.20); RED CELL DISTRIBUTION WIDTH 13.1 % (11.0-15.5); WHITE BLOOD COUNT (AUTO) 5.6 K/uL (4.8-10.8)
[2024-04-20 04:23] LABS: ALBUMIN 3.5 g/dL (3.5-5.0); BILIRUBIN,TOTAL 0.9 mg/dL (0.2-1.0); MAGNESIUM 1.7 mg/dL (1.80-2.40); POTASSIUM 4.2 mmol/L (3.5-5.1); TOTAL PROTEIN, SERUM 6.7 g/dL (6.0-8.3)
[2024-04-20 07:59] VITALS: BP 139/69; PULSE 72; RESP 18; TEMP 98.1
--- NOTE | 2024-04-20 08:50 | PN ---
[facility] CARDIOLOGY PROGRESS NOTE Date Patient Seen: Apr 20, 2024 Time of Visit: 08:38 Problem List: Angina/non-STEMI Elevated Troponin 2500 peak HTN HLD Paroxysmal atrial fibrillation not on anticoagulation as outpt secondary to falls Chronic left bundle-branch block CAD s/p CABG x3 (MIRELES-LAD, SVG-PDA, and SVG-OM) on 07/21/2018 2D echo on 10/03/2020 with an EF of 50-55%, grade 1 diastolic dysfunction, no obvious regional wall motion abnormalities Lexiscan stress test on 11/05/2023 demonstrated a large size moderate severity partially reversible defect of the basal to distal anterior and anteroseptal segments, hypokinesis of the anterior, septal, inferoseptal, and inferior segments with LVEF of 31% Interval History: Pt is evaluated in his room, no chest pain overnight. His bp is on the low end of normal, will not tolerate increasing the imdur. Pt has paroxysmal afib, will start full dose lovenox for this hospitalization, start plavix 75mg, use DAPT. Pt will get oob, and ambulate, eval symptom control. Physical Examination: GENERAL: [No acute distress.] HEAD: [Normal with no signs of head trauma.] EYES: [PERRLA, EOMI, conjunctiva and sclera normal.] ENT: [Hearing grossly intact, normal oropharynx.] NECK: [Supple without JVD. There is no tenderness, lymphadenopathy, or masses. No thyromegaly. Normal carotid upstrokes without bruits.] LUNGS: [Clear breath sounds bilaterally. HEART: [Normal rate and rhythm. Normal S1 and S2 without murmurs, gallop or rub.] VASC: [Peripheral pulses +2 bilaterally.] ABD: [Bowel sounds normal, soft, nontender, no masses, no organomegaly. No audible bruits.] : [Not examined] LYMPH: [No lymphadenopathy noted.] EXT: [No clubbing, cyanosis or edema.] SKIN: [No rashes or lesions noted.] NEURO: [Awake, alert, and oriented x3. No focal sensory or strength deficits noted.] Laboratory: [ ] Hematology Labs: Test 04/20/24 03:29 Range/Units White Blood Count 5.6 4.8-10.8 K/uL Red Blood Count 4.24 L 4.50-6.20 MIL/uL Hemoglobin 13.7 L 14.0-18.0 g/dL Hematocrit 39.7 L 42-54 % Mean Corpuscular Volume 93.6 79-99 fL Mean Corpuscular Hemoglobin 32.3 27.0-33.0 pg Mean Corpuscular Hemoglobin Concent 34.5 32.0-36.0 g/dL Red Cell Distribution Width 13.1 11.0-15.5 % Platelet Count 219 130-400 K/uL Mean Platelet Volume 9.6 7.5-10.5 fL Immature Granulocyte % (Auto) 0.7 0-1 % Neutrophils (%) (Auto) 63.2 40.0-77.0 % Lymphocytes (%) (Auto) 25.8 21.0-51.0 % Monocytes (%) (Auto) 7.5 3.0-13.0 % Eosinophils (%) (Auto) 2.3 0.0-8.0 % Basophils (%) (Auto) 0.5 0.0-5.0 % Neutrophils # (Auto) 3.5 1.8-7.7 K/uL Lymphocytes # (Auto) 1.4 1.0-4.8 K/uL Monocytes # (Auto) 0.4 0.1-1.0 K/uL Eosinophils # (Auto) 0.13 0.00-0.70 K/uL Basophils # (Auto) 0.03 0.00-0.20 K/uL Absolute Immature Granulocyte (auto 0.04 0-1 K/uL Nucleated Red Blood Cells 0.0 0.0-0.19 % Chemistry Labs: Test 04/20/24 03:29 04/19/24 04:26 04/18/24 13:18 04/18/24 12:55 Range/Units Sodium Level 138 136-145 mmol/L Potassium Level 4.2 3.5-5.1 mmol/L Chloride Level 103 101-111 mmol/L Carbon Dioxide Level 28 21-32 mmol/L Blood Urea Nitrogen 27 H 7-18 mg/dL Creatinine 1.0 0.5-1.3 mg/dL Glomerular Filtration Rate Calc 72 >90 mL/min Random Glucose 250 #H 70-105 mg/dL Total Calcium 8.6 8.5-10.1 mg/dL Magnesium Level 1.70 L 1.80-2.40 mg/dL Total Bilirubin 0.9 0.2-1.0 mg/dL Aspartate Amino Transf (AST/SGOT) 16 10-37 U/L Alanine Aminotransferase (ALT/SGPT) 15 12-78 U/L Alkaline Phosphatase 53 50-136 U/L Total Protein 6.7 6.0-8.3 g/dL Albumin 3.5 3.5-5.0 g/dL Hemoglobin A1c 7.0 H 4.0-6.0 % Estimated Average Glucose (eAG) 154 H 70-126 mg/dL Troponin I High Sensitivity 2121 *H 4-75 ng/L Troponin I 0.08 H 0.00-0.05 ng/mL Total Creatine Kinase 59 21-232 U/L B-Type Natriuretic Peptide 101 H 0-100 pg/mL Diagnostics / Radiology: [Copy/Paste Echos/Imaging Report here] Impression and Plan: full dose lovenox q12h DAPT Refill nitro prior to discharge for pt to use at home prn chest pain Continue ranolazine 500mg po bid, increase to 1000 mg po bid next week Continue with losartan 25mg po daily and metoprolol 25mg po bid Continue with progressive activity prior to discharge Pt high risk for falls, discuss with pt his desire for anticoagulation prior to dc with eliqugetachew - if he agrees, will need 2.5 mg po bid for age/weight dose reduction. Follow up in clinic in 1-2 weeks. PALLAVI BRADYCNJerica Apr 20, 2024 08:50
[2024-04-20] MEDS: ENOXAPARIN SODIUM 60 MG/0.6 ML SQ ONE (09:03)
[2024-04-20] MEDS: ENOXAPARIN SODIUM 60 MG/0.6 ML SQ SCH (09:03)
[2024-04-20] MEDS: cloPIDOgrel 75MG TAB PO SCH (09:07)
[2024-04-20 10:07] VITALS: O2SAT 96
[2024-04-20] MEDS ORDERED: APIX2.5T PO (11:29)
[2024-04-20] MEDS ORDERED: RANO500T6 PO (11:29)
[2024-04-20] MEDS ORDERED: NITR0.4T50 SL (11:29)
[2024-04-20] MEDS: ondanSETRON 4MG TABLET PO PRN (11:53)
--- NOTE | 2024-04-20 19:36 | DS ---
DATE OF SERVICE: 04/20/2024 PRESENTING COMPLAINT: Chest pain. HOSPITAL COURSE: An 88-year-old male with history of coronary artery disease, hypertension and BPH, who was admitted with chest pain. The patient was found with elevated troponin and was admitted as a case of N-STEMI. The patient was seen by Cardiology. Treated with antiplatelet, antihypertensive. The patient had adjustment made to cardiac medication. The patient is doing well clinically. No cardiac intervention ____ at this time. The patient cleared for discharge by Cardiology. FINAL DISCHARGE DIAGNOSES: * Non-ST elevation myocardial infarction. * Hypertension. * Benign prostatic hyperplasia. * Hypothyroidism. * Dyslipidemia. * Nonketotic hyperglycemia. PLAN: * The patient to be discharged home. * Continue antiplatelet. * Continue antihypertensive. * Continue Synthroid. * Follow up with primary care physician. * The patient will be followed up closely. TID: [id number] RECEIPT: [id number]
== END 2024-04-20 12:40 | disposition home or self-care (01) | DRG 282 ==
LOC: EDH 11:47 → EDHIP 15:29 → 2BH 23:26 → 2DH 04-19 21:33
PROVIDERS: ADMIT Internal Medicine Infectious Disease; ATTEND Internal Medicine Infectious Disease
DX: I21.4 Non-ST elevation (NSTEMI) myocardial infarction (principal); I25.10 Atherosclerotic heart disease of native coronary artery without angina pectoris; E11.65 Type 2 diabetes mellitus with hyperglycemia; I10 Essential (primary) hypertension; E78.00 Pure hypercholesterolemia, unspecified; E03.9 Hypothyroidism, unspecified; I44.7 Left bundle-branch block, unspecified; I48.0 Paroxysmal atrial fibrillation; N40.0 Benign prostatic hyperplasia without lower urinary tract symptoms; Z79.84 Long term (current) use of oral hypoglycemic drugs; Z95.1 Presence of aortocoronary bypass graft; Z79.899 Other long term (current) drug therapy; Z83.3 Family history of diabetes mellitus
CPT/HCPCS: 36415; 71045; 80048; 80053; 81001; 82550; 83036; 83735; 83880; 84484; 85025; 87086; 93005; 99285; G0378; J1650; Q0162